=== PATIENT | female | born 1950 | race Caucasian/White ===

== ENCOUNTER 2017-10-20 03:16 | Observation (INO) ==
[2017-10-20] MEDS ORDERED: Aspirin 81 MG TAB.CHEW PO ONE (03:29)
[2017-10-20] MEDS ORDERED: *HR* Metoprolol 5 MG/5 ML VIAL IVP ONE (03:44)
--- NOTE | 2017-10-20 03:47 | Emergency Department Note ---
Disposition Clinical Impression: Atrial fibrillation with rapid ventricular response Chest pain Qualifiers: Chest pain type: unspecified Qualified Code(s): R07.9 - Chest pain, unspecified Disposition: Admitted As Inpatient Condition: Fair Referrals: Elissa Bray CNP [Primary Care Provider] - Kavita Oakes [Family Provider] - Forms: ED Satisfaction Letter Time of Disposition: 03:48 Chest Pain HPI - General Chief Complaint: ED Chest Pain Stated Complaint: chest pain Time Seen by Provider: 10/20/17 03:28 Source: patient Limitations: no limitations Vital Signs Reviewed: Yes Nursing Notes Reviewed: Yes - History of Present Illness HPI Narrative: Alert and oriented nontoxic-appearing 67-year-old female presents for evaluation of nonradiating substernal chest pain that began at approximately midnight. She describes this pain as a heaviness and rated a 6 out of 10 on a 10 point scale. She denies any known aggravating or alleviating factors. She does have a history of atrial fibrillation, for which she is on Xarelto for anticoagulation. She states that at the onset of pain, she was just sitting in a chair watching TV. She denies any vomiting but does complain of some nausea with symptom onset. She states that she did break out in a sweat as well. He denies any hemoptysis but does complain of a nonproductive cough. She states that this cough is worse than her regular "COPD cough". Pt complaint: chest pain Onset (ago): hour(s) (3.5) Duration: constant Onset: during rest Pain Location: substernal Severity: moderate Severity scale (1-10): 6 Quality: heaviness Pain Radiation: none Improves with: nothing Worsens with: nothing Associated symptoms: Reports: nausea, diaphoresis, cough. Denies: vomiting, dyspnea, palpitations, fever, leg swelling Treatments prior to arrival chest pain: none - Related Data Allergies Allergy/AdvReac Type Severity Reaction Status Date / Time Diclofenac Allergy See Verified 10/20/17 03:21 Comments morphine Allergy Palpitation Verified 10/20/17 03:21 s diltiazem [From Diltzac ER] AdvReac Gastrointestinal Verified 10/20/17 03:21 Upset linagliptin [From Tradjenta] AdvReac Gastrointestinal Verified 10/20/17 03:21 Upset macitentan [From Opsumit] AdvReac Confusion Verified 10/20/17 03:21 metformin AdvReac Gastrointestinal Verified 10/20/17 03:21 Upset NSAIDS (Non-Steroidal AdvReac Gastrointestinal Verified 10/20/17 03:21 Anti-Inflamma Upset pioglitazone [From Actos] AdvReac Gastrointestinal Verified 10/20/17 03:21 Upset pregabalin [From Lyrica] AdvReac Confusion Verified 10/20/17 03:21 All systems ED: reviewed and negative except as stated. Constitutional: Denies: fever, chills, weakness, weight change Eyes: Denies: eye pain, eye discharge, vision change ENT ED: Denies: ear pain, throat pain, dental pain, hearing loss, epistaxis, congestion, dysphagia Cardiovascular: Reports: as per HPI, chest pain. Denies: palpitations, dyspnea on exertion, edema, syncope Respiratory: Reports: as per HPI, cough. Denies: dyspnea, wheezes, hemoptysis, stridor, sputum production Gastrointestinal: Reports: as per HPI, nausea. Denies: abdominal pain, vomiting , diarrhea, constipation, hematemesis, melena, hematochezia Genitourinary: Denies: dysuria, frequency, hematuria, discharge Musculoskeletal: Denies: back pain, neck pain, arthralgia, myalgia Integumentary: Denies: rash, abrasion, lesions Neurological: Denies: headache, weakness, numbness, paresthesias, confusion, abnormal gait, vertigo Psychiatric: Denies: anxiety, depression, suicidal thoughts, homicidal thoughts , auditory hallucinations, visual hallucinations Endocrine: Denies: fatigue Hematological/Lymphatic: Denies: easy bleeding, easy bruising Allergic/Immunologic: Denies: facial swelling, urticaria Chest Pain PMH - Past Medical History Medical history: Reports: atrial fibrillation, COPD, diabetes, GERD, hyperlipidemia, hypertension, renal disease Psychiatric history: Reports: no psych history 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 Absent: nystagmus - ENT ENT exam: mucous membranes moist - Neck Neck exam: Present: full ROM, trachea midline. Absent: lymphadenopathy - Chest Chest inspection: Present: normal inspection, symmetric chest wall rise, tenderness (Mild tenderness with palpation around the sternal borders) - Respiratory Respiratory exam: Present: normal lung sounds bilaterally. Absent: respiratory distress, wheezes, stridor, accessory muscle use, prolonged expiratory phase - Cardiovascular Cardiovascular exam: Present: tachycardia, irregular rhythm, normal heart sounds - Abdominal Exam Abdominal exam: Present: soft, Non-Tender, normal bowel sounds - Extremities Exam Extremities exam: Present: normal inspection, full ROM. Absent: tenderness, pedal edema - Neurological Exam Neurological exam: Present: alert, oriented X3 - Psychiatric Psychiatric exam: Present: normal affect, normal mood - Skin Skin exam: Present: warm, dry, intact, normal color. Absent: rash Course Course Narrative: I spoke with Dr. Villagran of the Hospital services accepted the patient for admission to his care. I discussed this case with Dr. Willoughby. Dr. Willoughby has had a [id number] evaluation with the patient and agrees with this plan. - Reevaluation(s) Reevaluation #1: The patient's heart rate has improved to the 80s to 90s after the administration of IV Lopressor. She does state significant improvement and chest pain after rate control was achieved. Time: 04:48 Vital Signs Temperature 97.7 F 10/20/17 03:22 Pulse Rate 105 10/20/17 03:22 Respiratory Rate 18 10/20/17 03:22 Blood Pressure 155/97 10/20/17 03:22 O2 Sat by Pulse Oximetry 95 10/20/17 03:22 Temperature 97.7 F 10/20/17 03:22 Pulse Rate 105 10/20/17 03:22 Respiratory Rate 18 10/20/17 03:22 Blood Pressure 155/97 10/20/17 03:22 O2 Sat by Pulse Oximetry 95 10/20/17 03:22 Oxygen Delivery Oxygen Delivery Room Air Chest Pain - Medical Records Medical records reviewed: Yes I reviewed the patient's medical records. - Lab Data Lab results reviewed: Yes I reviewed the patient's lab results. Lab results narrative: Lab Results 10/20/17 10/20/17 10/20/17 Range/Units 03:29 03:29 03:39 WBC 3.7 L (4.3-11.1) K/mcL RBC 4.84 (3.82-4.97) M/mcL Hgb 14.1 (11.5-15.4) g/dL Hct 43.0 (35.3-44.9) % MCV 88.8 (83.0-100.0) fL MCH 29.1 (28.0-33.3) pg MCHC 32.8 (31.6-35.5) g/dL RDW 13.8 (11.5-14.5) % Plt Count 271 (140-400) K/mcL MPV 10.3 (9.4-12.4) fL Immature Gran % 1.9 (0-4) % Seg Neutrophils % 41.1 % Lymphocytes % 40.2 % Monocytes % 15.5 % Eosinophils % 0.5 % Basophils % 0.8 % Neutrophils # 1.5 L (1.6-8.9) K/mcL Lymphocytes # 1.5 (0.6-4.6) K/mcL Monocytes # 0.6 (0.0-1.3) K/mcL Eosinophils # 0.0 (0.0-0.6) K/mcL Basophils # 0.0 (0.0-0.2) K/mcL PT 11.8 (9.4-12.1) Seconds INR 1.1 APTT 32.0 (26.0-36.0) Seconds D-Dimer 1132 H (0-500) ng/mLFEU Sodium (136-145) mEq/L Potassium (3.5-5.1) mEq/L Chloride (98-107) mEq/L Carbon Dioxide (23-29) mEq/L BUN (8-23) mg/dL Creatinine (0.60-1.20) mg/dL Est GFR ( Amer) (> 60) Est GFR (Non-Af Amer) (> 60) BUN/Creatinine Ratio (6-26) Glucose (70-105) mg/dL Calculated Osmolality (280-300) Calcium (8.6-10.3) mg/dL Troponin I (< 0.04) ng/mL B-Natriuretic Peptide 72 (Less than 100) pg/mL 10/20/17 Range/Units 03:39 WBC (4.3-11.1) K/mcL RBC (3.82-4.97) M/mcL Hgb (11.5-15.4) g/dL Hct (35.3-44.9) % MCV (83.0-100.0) fL MCH (28.0-33.3) pg MCHC (31.6-35.5) g/dL RDW (11.5-14.5) % Plt Count (140-400) K/mcL MPV (9.4-12.4) fL Immature Gran % (0-4) % Seg Neutrophils % % Lymphocytes % % Monocytes % % Eosinophils % % Basophils % % Neutrophils # (1.6-8.9) K/mcL Lymphocytes # (0.6-4.6) K/mcL Monocytes # (0.0-1.3) K/mcL Eosinophils # (0.0-0.6) K/mcL Basophils # (0.0-0.2) K/mcL PT (9.4-12.1) Seconds INR APTT (26.0-36.0) Seconds D-Dimer (0-500) ng/mLFEU Sodium 131 L (136-145) mEq/L Potassium 3.9 (3.5-5.1) mEq/L Chloride 96 L (98-107) mEq/L Carbon Dioxide 26 (23-29) mEq/L BUN 15 (8-23) mg/dL Creatinine 0.83 (0.60-1.20) mg/dL Est GFR ( Amer) > 60 (> 60) Est GFR (Non-Af Amer) > 60 (> 60) BUN/Creatinine Ratio 18 (6-26) Glucose 331 H (70-105) mg/dL Calculated Osmolality 286 (280-300) Calcium 9.1 (8.6-10.3) mg/dL Troponin I < 0.03 (< 0.04) ng/mL B-Natriuretic Peptide (Less than 100) pg/mL Result diagrams: 10/20/17 03:39 10/20/17 03:39 Lab Results 10/20/17 10/20/17 10/20/17 Range/Units 03:29 03:29 03:39 WBC 3.7 L (4.3-11.1) K/mcL RBC 4.84 (3.82-4.97) M/mcL Hgb 14.1 (11.5-15.4) g/dL Hct 43.0 (35.3-44.9) % MCV 88.8 (83.0-100.0) fL MCH 29.1 (28.0-33.3) pg MCHC 32.8 (31.6-35.5) g/dL RDW 13.8 (11.5-14.5) % Plt Count 271 (140-400) K/mcL MPV 10.3 (9.4-12.4) fL Immature Gran % 1.9 (0-4) % Seg Neutrophils % 41.1 % Lymphocytes % 40.2 % Monocytes % 15.5 % Eosinophils % 0.5 % Basophils % 0.8 % Neutrophils # 1.5 L (1.6-8.9) K/mcL Lymphocytes # 1.5 (0.6-4.6) K/mcL Monocytes # 0.6 (0.0-1.3) K/mcL Eosinophils # 0.0 (0.0-0.6) K/mcL Basophils # 0.0 (0.0-0.2) K/mcL PT 11.8 (9.4-12.1) Seconds INR 1.1 APTT 32.0 (26.0-36.0) Seconds D-Dimer 1132 H (0-500) ng/mLFEU Sodium (136-145) mEq/L Potassium (3.5-5.1) mEq/L Chloride (98-107) mEq/L Carbon Dioxide (23-29) mEq/L BUN (8-23) mg/dL Creatinine (0.60-1.20) mg/dL Est GFR ( Amer) (> 60) Est GFR (Non-Af Amer) (> 60) BUN/Creatinine Ratio (6-26) Glucose (70-105) mg/dL Calculated Osmolality (280-300) Calcium (8.6-10.3) mg/dL Troponin I (< 0.04) ng/mL B-Natriuretic Peptide 72 (Less than 100) pg/mL 10/20/17 Range/Units 03:39 WBC (4.3-11.1) K/mcL RBC (3.82-4.97) M/mcL Hgb (11.5-15.4) g/dL Hct (35.3-44.9) % MCV (83.0-100.0) fL MCH (28.0-33.3) pg MCHC (31.6-35.5) g/dL RDW (11.5-14.5) % Plt Count (140-400) K/mcL MPV (9.4-12.4) fL Immature Gran % (0-4) % Seg Neutrophils % % Lymphocytes % % Monocytes % % Eosinophils % % Basophils % % Neutrophils # (1.6-8.9) K/mcL Lymphocytes # (0.6-4.6) K/mcL Monocytes # (0.0-1.3) K/mcL Eosinophils # (0.0-0.6) K/mcL Basophils # (0.0-0.2) K/mcL PT (9.4-12.1) Seconds INR APTT (26.0-36.0) Seconds D-Dimer (0-500) ng/mLFEU Sodium 131 L (136-145) mEq/L Potassium 3.9 (3.5-5.1) mEq/L Chloride 96 L (98-107) mEq/L Carbon Dioxide 26 (23-29) mEq/L BUN 15 (8-23) mg/dL Creatinine 0.83 (0.60-1.20) mg/dL Est GFR ( Amer) > 60 (> 60) Est GFR (Non-Af Amer) > 60 (> 60) BUN/Creatinine Ratio 18 (6-26) Glucose 331 H (70-105) mg/dL Calculated Osmolality 286 (280-300) Calcium 9.1 (8.6-10.3) mg/dL Troponin I < 0.03 (< 0.04) ng/mL B-Natriuretic Peptide (Less than 100) pg/mL - Radiology Data Radiology results reviewed: Yes I reviewed the patient's radiology results. Chest X-Ray 10/20/17 03:29 IMPRESSION: Diffuse airway inflammation may be seen with asthma, bronchitis, smoking and aspiration. Questionable patchy airspace disease at the left lung base, although this may reflect although bronchovascular confluence accentuated by patient rotation. CT could clarify. D/ / Jerel Corado / Jerel Corado Interpreting Provider: Jerel Corado - EKG Data EKG attestation: Yes I reviewed and interpreted this EKG. EKG results narrative: EKG reviewed by Dr. Willoughby as well. EKG shows atrial fibrillation with rapid ventricular response at a rate of 115 bpm. QRS duration 89, QT/QTc interval 311 /379. No ectopy noted. No ST elevation. Old EKG for comparison. Mild ST depression noted in leads V3, V4, V5, and V6. Heart Score - Score History: Moderately Suspicious EKG: Non Specific repolarisation Disturbance Age: Greater than 65 Risk Factors: Equal/Greater than 3 risk factor or history of atherosclerotic disease Troponin: Less than normal limit HEART Score Total: 6
[2017-10-20] MEDS: 0.9 % Sodium Chloride 1,000 ML IVC ONE ×2 (04:01→07:28)
[2017-10-20 04:28] LABS: Basophils % 0.8 %; Eosinophils % 0.5 %; Hemoglobin 14.1 g/dL (11.5-15.4); Immature Granulocytes % 1.9 % (0-4); Lymphocytes # 1.5 K/mcL (0.6-4.6); Lymphocytes % 40.2 %; Mean Corpuscular HGB Conc 32.8 g/dL (31.6-35.5); Mean Corpuscular Hemoglobin 29.1 pg (28.0-33.3); Mean Corpuscular Volume 88.8 fL (83.0-100.0); Mean Platelet Volume 10.3 fL (9.4-12.4); Monocytes # 0.6 K/mcL (0.0-1.3); Monocytes % 15.5 %; Neutrophils # 1.5 K/mcL (1.6-8.9); Platelet Count 271 K/mcL (140-400); Red Blood Count 4.84 M/mcL (3.82-4.97); Red Cell Distribution Width 13.8 % (11.5-14.5); Segmented Neutrophils % 41.1 %
[2017-10-20 04:34] LABS: INR 1.1; Prothrombin Time 11.8 Seconds (9.4-12.1)
[2017-10-20] MEDS ORDERED: Isovue-370 500 ML INFUS..BTL IV ONE (04:47)
[2017-10-20 04:57] LABS: BUN/Creatinine Ratio 18 (6-26); Blood Urea Nitrogen 15 mg/dL (8-23); Calcium 9.1 mg/dL (8.6-10.3); Carbon Dioxide 26 mEq/L (23-29); Chloride 96 mEq/L (98-107); Glucose 331 mg/dL (70-105); Osmolality,Calculated 286 (280-300); Potassium 3.9 mEq/L (3.5-5.1); Sodium 131 mEq/L (136-145); Troponin I < 0.03 ng/mL (< 0.04); eGFR For African Americans > 60 (> 60); eGFR For Non-African Americans > 60 (> 60)
[2017-10-20] MEDS ORDERED: *HR* Rivaroxaban 10 MG TABLET PO STA (05:26)
[2017-10-20] MEDS ORDERED: Azithromycin 500 MG in D5% in Water 250 ML IVPB ONE (06:03)
[2017-10-20] MEDS ORDERED: Naloxone 0.4 MG/ML INJ IVP PRN (06:08)
[2017-10-20] MEDS ORDERED: Acetaminophen 325 MG TABLET PO PRN (06:08)
[2017-10-20] MEDS ORDERED: Dextrose Gel 15 GM/37.5 ML TUBE PO PRN ×2 (06:12)
[2017-10-20] MEDS ORDERED: D5% in Water 1,000 ML IVC PRN (06:12)
[2017-10-20] MEDS ORDERED: *HR* Metoprolol 5 MG/5 ML VIAL IVP PRN (06:13)
[2017-10-20] MEDS ORDERED: Ipratropium/Albuterol Neb 3 ML IH PRN ×2 (06:17→20:00)
[2017-10-20] MEDS: cefTRIAXone 1,000 MG in Water for inj. (sterile) 20 ML 10 ML IVPB ONE ×2 (06:21→07:28)
--- NOTE | 2017-10-20 06:21 | Emergency Department Note ---
Disposition Clinical Impression: Atrial fibrillation with rapid ventricular response Chest pain Qualifiers: Chest pain type: unspecified Qualified Code(s): R07.9 - Chest pain, unspecified Disposition: Admitted As Inpatient Condition: Fair Referrals: Elissa Bray CNP [Primary Care Provider] - Kavita Oakes [Family Provider] - Forms: ED Satisfaction Letter General Adult HPI - General Chief complaint: ED Chest Pain Stated complaint: chest pain Time Seen by Provider: 10/20/17 03:28 Source: patient Limitations: no limitations Nursing Notes Reviewed: Yes Vital Signs Reviewed: Yes - History of Present Illness Pain Scale: 5 - Related Data Allergies Allergy/AdvReac Type Severity Reaction Status Date / Time Diclofenac Allergy See Verified 10/20/17 03:21 Comments morphine Allergy Palpitation Verified 10/20/17 03:21 s diltiazem [From Diltzac ER] AdvReac Gastrointestinal Verified 10/20/17 03:21 Upset linagliptin [From Tradjenta] AdvReac Gastrointestinal Verified 10/20/17 03:21 Upset macitentan [From Opsumit] AdvReac Confusion Verified 10/20/17 03:21 metformin AdvReac Gastrointestinal Verified 10/20/17 03:21 Upset NSAIDS (Non-Steroidal AdvReac Gastrointestinal Verified 10/20/17 03:21 Anti-Inflamma Upset pioglitazone [From Actos] AdvReac Gastrointestinal Verified 10/20/17 03:21 Upset pregabalin [From Lyrica] AdvReac Confusion Verified 10/20/17 03:21 Constitutional: Denies: fever, chills, weakness, weight change Eyes: Denies: eye pain, eye discharge, vision change ENT ED: Denies: ear pain, throat pain, dental pain, hearing loss, epistaxis, congestion, dysphagia Cardiovascular: Reports: as per HPI, chest pain. Denies: palpitations, dyspnea on exertion, edema, syncope Respiratory: Reports: as per HPI, cough. Denies: dyspnea, wheezes, hemoptysis, stridor, sputum production Gastrointestinal: Reports: as per HPI, nausea. Denies: abdominal pain, vomiting , diarrhea, constipation, hematemesis, melena, hematochezia Genitourinary: Denies: dysuria, frequency, hematuria, discharge Musculoskeletal: Denies: back pain, neck pain, arthralgia, myalgia Integumentary: Denies: rash, abrasion, lesions Neurological: Denies: headache, weakness, numbness, paresthesias, confusion, abnormal gait, vertigo Psychiatric: Denies: anxiety, depression, suicidal thoughts, homicidal thoughts , auditory hallucinations, visual hallucinations Endocrine: Denies: fatigue Hematological/Lymphatic: Denies: easy bleeding, easy bruising Allergic/Immunologic: Denies: facial swelling, urticaria Past Medical History - Past Medical History Medical history: Reports: atrial fibrillation, COPD, diabetes, GERD, hyperlipidemia, hypertension, renal disease Psychiatric history: Reports: no psych history 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 - Social History Smoking Status: Never smoker Smokeless Tobacco Status: No Alcohol use: Reports: none Drug use: Reports: none Physical Exam - General Limitations: no limitations General appearance: alert, in no apparent distress Course Vital Signs Temperature 97.7 F 10/20/17 03:22 Pulse Rate 105 10/20/17 03:22 Respiratory Rate 18 10/20/17 03:22 Blood Pressure 155/97 10/20/17 03:22 O2 Sat by Pulse Oximetry 95 10/20/17 03:22 Temperature 98.8 F 10/20/17 06:08 Pulse Rate 107 10/20/17 06:08 Respiratory Rate 18 10/20/17 06:08 Blood Pressure 149/91 10/20/17 06:08 O2 Sat by Pulse Oximetry 93 10/20/17 06:08 Oxygen Delivery Oxygen Delivery Room Air Medical Decision Making - Lab Data Result diagrams: 10/20/17 03:39 10/20/17 03:39 Lab Results 10/20/17 10/20/17 10/20/17 Range/Units 03:29 03:29 03:39 WBC 3.7 L (4.3-11.1) K/mcL RBC 4.84 (3.82-4.97) M/mcL Hgb 14.1 (11.5-15.4) g/dL Hct 43.0 (35.3-44.9) % MCV 88.8 (83.0-100.0) fL MCH 29.1 (28.0-33.3) pg MCHC 32.8 (31.6-35.5) g/dL RDW 13.8 (11.5-14.5) % Plt Count 271 (140-400) K/mcL MPV 10.3 (9.4-12.4) fL Immature Gran % 1.9 (0-4) % Seg Neutrophils % 41.1 % Lymphocytes % 40.2 % Monocytes % 15.5 % Eosinophils % 0.5 % Basophils % 0.8 % Neutrophils # 1.5 L (1.6-8.9) K/mcL Lymphocytes # 1.5 (0.6-4.6) K/mcL Monocytes # 0.6 (0.0-1.3) K/mcL Eosinophils # 0.0 (0.0-0.6) K/mcL Basophils # 0.0 (0.0-0.2) K/mcL PT 11.8 (9.4-12.1) Seconds INR 1.1 APTT 32.0 (26.0-36.0) Seconds D-Dimer 1132 H (0-500) ng/mLFEU Sodium (136-145) mEq/L Potassium (3.5-5.1) mEq/L Chloride (98-107) mEq/L Carbon Dioxide (23-29) mEq/L BUN (8-23) mg/dL Creatinine (0.60-1.20) mg/dL Est GFR ( Amer) (> 60) Est GFR (Non-Af Amer) (> 60) BUN/Creatinine Ratio (6-26) Glucose (70-105) mg/dL Calculated Osmolality (280-300) Calcium (8.6-10.3) mg/dL Troponin I (< 0.04) ng/mL B-Natriuretic Peptide 72 (Less than 100) pg/mL 10/20/17 Range/Units 03:39 WBC (4.3-11.1) K/mcL RBC (3.82-4.97) M/mcL Hgb (11.5-15.4) g/dL Hct (35.3-44.9) % MCV (83.0-100.0) fL MCH (28.0-33.3) pg MCHC (31.6-35.5) g/dL RDW (11.5-14.5) % Plt Count (140-400) K/mcL MPV (9.4-12.4) fL Immature Gran % (0-4) % Seg Neutrophils % % Lymphocytes % % Monocytes % % Eosinophils % % Basophils % % Neutrophils # (1.6-8.9) K/mcL Lymphocytes # (0.6-4.6) K/mcL Monocytes # (0.0-1.3) K/mcL Eosinophils # (0.0-0.6) K/mcL Basophils # (0.0-0.2) K/mcL PT (9.4-12.1) Seconds INR APTT (26.0-36.0) Seconds D-Dimer (0-500) ng/mLFEU Sodium 131 L (136-145) mEq/L Potassium 3.9 (3.5-5.1) mEq/L Chloride 96 L (98-107) mEq/L Carbon Dioxide 26 (23-29) mEq/L BUN 15 (8-23) mg/dL Creatinine 0.83 (0.60-1.20) mg/dL Est GFR ( Amer) > 60 (> 60) Est GFR (Non-Af Amer) > 60 (> 60) BUN/Creatinine Ratio 18 (6-26) Glucose 331 H (70-105) mg/dL Calculated Osmolality 286 (280-300) Calcium 9.1 (8.6-10.3) mg/dL Troponin I < 0.03 (< 0.04) ng/mL B-Natriuretic Peptide (Less than 100) pg/mL Critical Care Time Critical Care Time: Yes Total Critical Care Time: 30 Attestation: Critical care performed: Time is exclusive of separately billable procedures. Time includes: direct patient care, patient reassessment, coordination of patient care, interpretation of data (laboratory data, radiology data, and respiratory data), review of patient's medical records, medical consultation and documentation of patient care. Procedures included in critical care time: Procedures excluded from critical care time: Attestation Statement - Attestation Attestation: I, Palmer Willoughby MD, personally evaluated this patient and discussed their management with the midlevel provicer, PAC/SLEEPER CUTTER. I reviewed the midlevel provider 's note and agree with the documented findings, medical decision making, and plan of care. 67-year-old female presents to the emergency department with a complaint of substernal chest pain which started about 2-3 hours prior to arrival. Patient was here at the hospital with her who is admitted. She also complains of palpitations. She has a history of atrial fibrillation and is on Xarelto. No radiation of the chest pain. No shortness of breath. No nausea or vomiting. No diaphoresis. On arrival here the emergency department the patient is in atrial fibrillation with RVR with a heart rate around 110-120. She received Lopressor IV with improvement in her heart rate and also improvement in her chest discomfort. Patient later advised that she had missed her Xarelto this evening because she was here at the hospital with her . She also missed her evening dose of sotalol. On examination patient is a well-developed obese elderly female in no acute distress. She is alert and oriented 3. There is no cyanosis or diaphoresis. Chest is nontender to palpation. Breath sounds are equal bilaterally. Heart irregularly irregular with a mild tachycardia. Abdomen soft and nontender with normal bowel sounds. Labs reviewed. Troponin negative. Chest x-ray negative. EKG shows atrial fibrillation with RVR with a heart rate of 115. Some mild anterior ST depression which is probably rate related. The hospitalist, Dr. Villagran, was consulted and accepted admission of the patient.
--- NOTE | 2017-10-20 06:25 | Internal Med History&Physical ---
Date of Encounter: 10/20/17 Time of Encounter: 05:50 Internal Medicine - H&P: HPI Chief complaint: Chest pain Admitted From: Home Plans for Post Hospital Care: Home History of present illness: Ms. Trimble is a 67 year old female present to ER for chest pain since midnight. Her past medical history is significant for diabetes, COPD, A. fib on sotalol and xarelto, hypertension, hyperlipidemia, GERD. Patient said the pain started from midnight, located on mid chest, sharp/heavy, radiated to bilateral shoulders and neck, constant, worsening on deep breathing. Patient has shortness of breath. Patient denies nausea. Patient has diaphoresis. Patient has a recent nonproductive cough for about 2 weeks, no fever. Patient denies recent travel or immobilization or surgery. Patient complaining of bilateral leg swelling. Patient also complaining of abdominal pain on the right side. In the emergency room, EKG shows A. fib with mild rapid ventricular response, no significant ST-T changes. D-dimer positive, CTA is pending. Patient was given 1 dose of xarelto by ER physician and admitted for further management. Past Med Surg Social Fam HX - Past Medical History Medical history: atrial fibrillation, COPD, diabetes, GERD, hyperlipidemia, hypertension, renal disease Psychiatric history: no psych history - Social History Smoking Status: Never smoker Smokeless Tobacco Status: No Alcohol use: none Drug use: none - Family History Mother History Unknown: Yes Internal Medicine - H&P: Meds 3 Allergy/AdvReac Type Severity Reaction Status Date / Time Diclofenac Allergy See Verified 10/20/17 03:21 Comments morphine Allergy Palpitation Verified 10/20/17 03:21 s diltiazem [From Diltzac ER] AdvReac Gastrointestinal Verified 10/20/17 03:21 Upset linagliptin [From Tradjenta] AdvReac Gastrointestinal Verified 10/20/17 03:21 Upset macitentan [From Opsumit] AdvReac Confusion Verified 10/20/17 03:21 metformin AdvReac Gastrointestinal Verified 10/20/17 03:21 Upset NSAIDS (Non-Steroidal AdvReac Gastrointestinal Verified 10/20/17 03:21 Anti-Inflamma Upset pioglitazone [From Actos] AdvReac Gastrointestinal Verified 10/20/17 03:21 Upset pregabalin [From Lyrica] AdvReac Confusion Verified 10/20/17 03:21 All Systems PM: A 10-system review of systems was performed and is negative for pertinent findings except as documented above in the HPI. - Constitutional Vitals: Temp Pulse Resp BP Pulse Ox 98.8 F 107 18 149/91 93 10/20/17 06:08 10/20/17 06:08 10/20/17 06:08 10/20/17 06:08 10/20/17 06:08 General appearance: Present: A&O X 3, no acute distress, answers questions appropriately - Head Head exam: Present: atraumatic, normocephalic - Eye Eye exam: Present: PERRL, conjuntiva pink, sclera anicteric Pupils: Present: PERRL - Neck Neck exam general surgery: Present: supple, trachea midline. Absent: lymphadenopathy - Respiratory Respiratory exam: Present: chest wall tenderness (on mid chest), CTAB. Absent: accessory muscle use, rales, rhonchi, wheezes - Cardiovascular Cardiovascular exam: Present: RRR, +S1, +S2. Absent: diastolic murmur, gallop, rubs, systolic murmur - GI/Abdominal GI/Abdominal exam: Present: normal bowel sounds, soft, tenderness (Mild tenderness on right-sided abdomen, no rebound or guarding), no peritoneal signs. Absent: distended - Extremities Exam Extremities exam: Present: calf tenderness (Mild calf tenderness bilaterally), warm, radial pulses palpable and symmetrical. Absent: cyanotic, pedal edema - Neurological Exam Neurological exam: Present: CN II-XII intact, oriented X3, no focal deficits. Absent: pronater drift, facial droop, speech deficit - Skin Skin exam: Present: dry, intact Internal Med - H&P Results - Labs CBC & Chem 7: 10/20/17 03:39 10/20/17 03:39 Labs: Short CBC 10/20/17 Range/Units 03:39 WBC 3.7 L (4.3-11.1) K/mcL Hgb 14.1 (11.5-15.4) g/dL Hct 43.0 (35.3-44.9) % Plt Count 271 (140-400) K/mcL Neutrophils # 1.5 L (1.6-8.9) K/mcL BMP 10/20/17 03:39 Sodium 131 L Potassium 3.9 Chloride 96 L Carbon Dioxide 26 BUN 15 Creatinine 0.83 Glucose 331 H Calcium 9.1 Cardiac Enzymes 10/20/17 Range/Units 03:39 Troponin I < 0.03 (< 0.04) ng/mL - EKG Data -: EKG Interpreted by Myself (Jazmin alberto, heart rate 115) EKG shows normal: ST-T waves (No significant ST-T changes) Rate: tachycardia - Impressions ITS Impressions Chest X-Ray 10/20/17 03:29 IMPRESSION: Diffuse airway inflammation may be seen with asthma, bronchitis, smoking and aspiration. Questionable patchy airspace disease at the left lung base, although this may reflect although bronchovascular confluence accentuated by patient rotation. CT could clarify. D/ / Jerel Corado / Jerel Corado Interpreting Provider: Jerel Corado Chest CTA 10/20/17 04:47 IMPRESSION: No pulmonary emboli. Left lower lobe bronchial wall thickening with small amount of peribronchiolar airspace opacity, early bronchopneumonia not excluded. D/ / Emory Pelletier MD / Emory Pelletier MD Interpreting Provider: Emory Pelletier MD - Assessment and plan (1) COPD (chronic obstructive pulmonary disease) Current Visit: Yes Status: Acute Assessment and plan: No wheezing. No signs of COPD exacerbation. Place patient on DuoNeb when necessary. Qualifiers: COPD type: emphysema Emphysema type: unspecified Qualified Code(s): J43.9 - Emphysema, unspecified (2) Pneumonia Current Visit: Yes Status: Acute Assessment and plan: Chest x-ray shows questionable infiltrate. Patient has nonproductive cough for 2 weeks, consider acute bronchitis versus community acquired pneumonia. - Azithromycin and Rocephin started from ER, will continue, unless CTA ruled out pneumonia - Symptomatic treatment for cough - Oxygen supportive treatment Qualifiers: Pneumonia type: due to Pneumococcus Laterality: left Lung location: lower lobe of lung Qualified Code(s): J13 - Pneumonia due to Streptococcus pneumoniae (3) Elevated d-dimer Current Visit: Yes Status: Acute Assessment and plan: Patient has chest pain. Mild tachycardia. Elevated d-dimer. Need to rule out PE. - Patient was given 1 dose of xarelto 20mg once in ER - Follow up CTA result. - Lower extremity venous Doppler bilaterally (4) Diabetes mellitus Current Visit: Yes Status: Acute Assessment and plan: Patient uses novolog 30 unit tid with meal. [address] patient on medium dose sliding scale before meals at bedtime Qualifiers: Diabetes mellitus type: type 2 Diabetes mellitus jail insulin use: with jail use Diabetes mellitus complication status: without complication Qualified Code(s): E11.9 - Type 2 diabetes mellitus without complications; Z79.4 - half-way (current) use of insulin; Z79.4 - joint terminal attack controller ( current) use of insulin; Z79.4 - joint terminal attack controller (current) use of insulin; Z79.4 - half-way (current) use of insulin (5) Hypertension Current Visit: Yes Status: Acute Assessment and plan: Place patient on hydralazine IV when necessary. Resume home medication after verification Qualifiers: Hypertension type: essential hypertension Qualified Code(s): I10 - Essential (primary) hypertension (6) DVT prophylaxis Current Visit: Yes Status: Acute Assessment and plan: Patient is on xarelto. (7) Chest pain Current Visit: Yes Status: Acute Assessment and plan: Etiology is undetermined. Chest the pain is inducible by palpitation and the patient has recent URI symptoms. Consider skeletal muscular pain, however need to rule out ACS and PE - Continuous cardiac monitoring - Track 3 sets of troponin - Echocardiogram - CTA is pending Qualifiers: Chest pain type: precordial pain Qualified Code(s): R07.2 - Precordial pain (8) Atrial fibrillation with rapid ventricular response Current Visit: Yes Status: Acute Assessment and plan: Patient is allergic to Cardizem. Place patient on home medication sotalol and IV metoprolol when necessary. Continue xarelto for anticoagulation (9) Abdominal pain Current Visit: Yes Status: Acute Assessment and plan: Patient has RUQ abdominal pain, abdominal exam is benign. Morphy's sign negative. Will further order abdominal and pelvis CT. Qualifiers: Abdominal location: right upper quadrant Qualified Code(s): R10.11 - Right upper quadrant pain - Time Spent With Patient Total time spent is greater than 50% in coordination of care (as documented) at patient's floor/unit and/or counseling patient: 40 minutes Greater than 35 minutes
[2017-10-20] MEDS: Insulin LISPRO 300 UNITS/3 ML VIAL SQ SCH ×3 (08:54→16:03)
[2017-10-20] MEDS: cefTRIAXone 1,000 MG in Water for inj. (sterile) 20 ML 10 ML IVP SCH (08:56)
[2017-10-20] MEDS: Azithromycin 500 MG in D5% in Water 250 ML IVPB SCH (08:57)
[2017-10-20] MEDS ORDERED: *HR* HYDROcodone/Acet 7.5/325 mg TABLET PO PRN (09:39)
--- NOTE | 2017-10-20 16:57 | Event Note ---
Date of Encounter: 10/20/17 Time of Encounter: 16:47 Seen and examined at bedside. Sitting up on edge of bed, having some shortness of breath otherwise feels better. No further chest pain. She is agreeable for inpatient stress testing. (1) COPD (chronic obstructive pulmonary disease) No wheezing. No signs of COPD exacerbation. Place patient on DuoNeb when necessary. (2) Pneumonia Chest x-ray shows questionable infiltrate. Patient has nonproductive cough for 2 weeks, consider acute bronchitis versus community acquired pneumonia. Chest CTA concerning for LLL pneumonia - Azithromycin and Rocephin started from ER - Symptomatic treatment for cough - Oxygen supportive treatment (3) Elevated d-dimer Patient has chest pain. Mild tachycardia. Elevated d-dimer. Chest CTA negative for pulmonary embolism (4) Diabetes mellitus Patient uses novolog [address]. [address] patient on medium dose sliding scale before meals at bedtime (5) Hypertension per hx. resume home BB; holding HCTZ with hyponatremia. Monitor BP and titrate PRN (6) DVT prophylaxis Patient is on xarelto. (7) Chest pain Etiology is undetermined. Chest the pain is inducible by palpitation and the patient has recent URI symptoms. Chest CTA as noted above.Serial troponin negative. EKG without acute ST changes. Patient is agreeable for stress test. NPO at midnight. Cont home Xarelto, BB (8) Atrial fibrillation with rapid ventricular response per hx. COnt home sotalol. Continue xarelto for anticoagulation (9) Abdominal pain Patient has RUQ abdominal pain, abdominal exam is benign. ABD CT nonacute. Abdominal pain now resolved.
[2017-10-20] MEDS ORDERED: Losartan/HCTZ 50-12.5 TABLET PO SCH (17:00)
[2017-10-20] MEDS: *HR* HYDROcodone/Acet 7.5/325 mg TABLET PO PRN (17:26)
[2017-10-20] MEDS ORDERED: Perflutren Lipid Microsphere 1.3 ML in 0.9 % Sodium Chloride 8.7 ML IVP ONE (21:59)
[2017-10-20] MEDS: rOPINIRole 1 MG TABLET PO SCH (22:11)
[2017-10-20] MEDS: Gabapentin 400 MG CAPSULE PO SCH (22:11)
[2017-10-21] MEDS: Insulin LISPRO 300 UNITS/3 ML VIAL SQ SCH ×5 (00:02→21:36)
[2017-10-21] MEDS: *HR* HYDROcodone/Acet 7.5/325 mg TABLET PO PRN ×2 (00:03→12:03)
[2017-10-21] MEDS ORDERED: Regadenoson 0.4 MG/5 ML SYRINGE IVP ONE (05:48)
[2017-10-21] MEDS: Azithromycin 500 MG in D5% in Water 250 ML IVPB SCH (06:26)
[2017-10-21 07:20] LABS: Hematocrit 38.5 % (35.3-44.9); Lymphocytes # 2.1 K/mcL (0.6-4.6); Mean Corpuscular HGB Conc 32.5 g/dL (31.6-35.5); Mean Corpuscular Hemoglobin 29.5 pg (28.0-33.3); Mean Corpuscular Volume 90.8 fL (83.0-100.0); Mean Platelet Volume 10.6 fL (9.4-12.4); Monocytes # 0.5 K/mcL (0.0-1.3); Platelet Count 243 K/mcL (140-400); Red Blood Count 4.24 M/mcL (3.82-4.97); Red Cell Distribution Width 14.3 % (11.5-14.5)
[2017-10-21 07:39] LABS: Calcium 9.1 mg/dL (8.6-10.3); Magnesium 1.6 mg/dL (1.6-2.6); Potassium 3.8 mEq/L (3.5-5.1)
[2017-10-21] MEDS ORDERED: 0.9 % Sodium Chloride 1,000 ML IVC SCH ×2 (09:00→19:45)
[2017-10-21] MEDS ORDERED: Furosemide 40 MG TABLET PO SCH (09:00)
[2017-10-21] MEDS ORDERED: *HR* Rivaroxaban 10 MG TABLET PO SCH (09:00)
[2017-10-21] MEDS: Gabapentin 400 MG CAPSULE PO SCH ×3 (10:17→21:12)
[2017-10-21 11:00] LABS: Hemoglobin 12.5 g/dL (11.5-15.4)
[2017-10-21 11:32] LABS: Neutrophils # 1.1 K/mcL (1.6-8.9); Platelet Estimate Normal (Normal); Reactive Lymphocytes Present (Not Present)
[2017-10-21] MEDS ORDERED: Promethazine 12.5 MG in 0.9 % Sodium Chloride 50 ML IVPB PRN (16:34)
--- NOTE | 2017-10-21 19:30 | Internal Med Progress Note ---
Date of Encounter: 10/21/17 Time of Encounter: 19:27 - Assessment and plan (1) Chest pain Current Visit: Yes Status: Acute Assessment and plan: presented with left shoulder pain that radiated to chest. Chest pain was inducible by palpitation and the patient has recent URI symptoms. Chest CTA as noted below. Serial troponin negative. EKG without acute ST changes. TTE with EF 60%, mild diastolic dysfunction, no wall motion abnormalities. NPO at midnight. Stress test in am. Cont home Reynaldo, BB Qualifiers: Chest pain type: precordial pain Qualified Code(s): R07.2 - Precordial pain (2) Pneumonia Current Visit: Yes Status: Acute Assessment and plan: symptomatic with nonproductive cough for 2 weeks. CXR with questionable infiltrate; consider acute bronchitis versus community acquired pneumonia. Qualifiers: Pneumonia type: due to Pneumococcus Laterality: left Lung location: lower lobe of lung Qualified Code(s): J13 - Pneumonia due to Streptococcus pneumoniae (3) Atrial fibrillation with rapid ventricular response Current Visit: Yes Status: Acute Assessment and plan: per hx. With mild tachycardia on arrival. Now rate controlled. Cont home sotalol , xarelto (4) Hypertension Current Visit: Yes Status: Acute Assessment and plan: per hx. BP soft/borderline with resuming home medication. Stop aldactone and decrease home ARB, lasix. Monitor BP and titrate PRN Qualifiers: Hypertension type: essential hypertension Qualified Code(s): I10 - Essential (primary) hypertension (5) MAN (acute kidney injury) Current Visit: Yes Status: Acute Assessment and plan: Cr 1.4; baseline normal. Home medications resumed yesterday which include ARB, lasix and aldactone. Suspect that may the cause in Cr increase. BP soft/border as noted above. Stop aldactone, decrease lasi and ARB by half. Gentle IV fluids. Monitor repeat renal function (6) Diabetes mellitus Current Visit: Yes Status: Acute Assessment and plan: per hx. On U-500 insulin at home. Blood sugars in the 300s with medium dose SSI. Discussed with Shy (pharmacist) and will resume home U-500 at 1/2 her home dose. Monitor blood sugar and titrate PRN. Hgb A1c pending Qualifiers: Diabetes mellitus type: type 2 Diabetes mellitus prison insulin use: with prison use Diabetes mellitus complication status: without complication Qualified Code(s): E11.9 - Type 2 diabetes mellitus without complications; Z79.4 - correction (current) use of insulin; Z79.4 - correction ( current) use of insulin; Z79.4 - long term care phlebotomist (current) use of insulin; Z79.4 - long term care phlebotomist (current) use of insulin (7) COPD (chronic obstructive pulmonary disease) Current Visit: Yes Status: Acute Assessment and plan: per hx. No signs of exacerbation. PRN DuoNebs Qualifiers: COPD type: emphysema Emphysema type: unspecified Qualified Code(s): J43.9 - Emphysema, unspecified (8) Elevated d-dimer Current Visit: Yes Status: Acute Assessment and plan: presented with chest pain. Mild tachycardia. Elevated d-dimer. Chest CTA negative for pulmonary embolism. BLEVD negative for DVT (9) Abdominal pain Current Visit: Yes Status: Acute Assessment and plan: Patient has RUQ abdominal pain, abdominal exam is benign. ABD CT nonacute. Abdominal pain now resolved. Qualifiers: Abdominal location: right upper quadrant Qualified Code(s): R10.11 - Right upper quadrant pain (10) DVT prophylaxis Current Visit: Yes Status: Acute Assessment and plan: xarelto. - Time Spent With Patient Total time spent is greater than 50% in coordination of care (as documented) at patient's floor/unit and/or counseling patient: - Subjective Interval history: Seen and examined at bedside, says she feels better today. She feels a little SOB but overall improved. No CP, no ABD pain. - Constitutional Vitals: Temp Pulse Resp BP Pulse Ox 97.5 F L 50 16 104/66 93 10/21/17 18:45 10/21/17 18:45 10/21/17 18:45 10/21/17 18:45 10/21/17 18:45 General appearance: Present: A&O X 3, morbidly obese, no acute distress, answers questions appropriately - Head Head exam: Present: atraumatic, normocephalic - Eye Eye exam: Present: PERRL, conjuntiva pink, sclera anicteric Pupils: Present: PERRL - Neck Neck exam general surgery: Present: supple, trachea midline. Absent: lymphadenopathy - Respiratory Respiratory exam: Present: CTAB. Absent: accessory muscle use, rales, rhonchi, wheezes - Cardiovascular Cardiovascular exam: Present: RRR, +S1, +S2. Absent: diastolic murmur, gallop, rubs, systolic murmur - GI/Abdominal GI/Abdominal exam: Present: normal bowel sounds, soft, no peritoneal signs. Absent: distended, tenderness - Extremities Exam Extremities exam: Present: warm, radial pulses palpable and symmetrical. Absent : calf tenderness, cyanotic, pedal edema - Neurological Exam Neurological exam: Present: CN II-XII intact, oriented X3, no focal deficits. Absent: pronater drift, facial droop, speech deficit - Skin Skin exam: Present: dry, intact Internal Medicine: Result - Labs CBC & Chem 7: 10/21/17 06:12 10/21/17 06:12 Labs: Short CBC 10/21/17 Range/Units 06:12 WBC 3.8 L (4.3-11.1) K/mcL Hgb 12.5 D (11.5-15.4) g/dL Hct 38.5 (35.3-44.9) % Plt Count 243 (140-400) K/mcL Neutrophils # 1.1 L (1.6-8.9) K/mcL BMP 10/21/17 06:12 Sodium 136 Potassium 3.8 Chloride 100 Carbon Dioxide 29 BUN 25 H Creatinine 1.43 H Glucose 225 H Calcium 9.1 - ABG Interpretation ABG results: PT/INR, D-dimer PT 11.8 Seconds (9.4-12.1) 10/20/17 03:29 D-Dimer 1132 ng/mLFEU (0-500) H 10/20/17 03:29 Consult Discharge Plan - Plan Referrals: Elissa Bray CNP [Primary Care Provider] - 10/26/17 11:15 am
[2017-10-21] MEDS ORDERED: *HR* Insulin Regular U-500 500 UNIT/ML SQ SCH (21:00)
[2017-10-21] MEDS: rOPINIRole 1 MG TABLET PO SCH (21:13)
[2017-10-21 22:37] LABS: Adenovirus Not Detected (Not Detect); Coronavirus 229E Not Detected (Not Detect); Coronavirus HKU1 Not Detected (Not Detect); Coronavirus NL63 Not Detected (Not Detect); Coronavirus OC43 Not Detected (Not Detect); Human Metapneumovirus Not Detected (Not Detect); Human Rhinovirus/Enterovirus Not Detected (Not Detect); Influenza A Subtype 2009 H1 Not Detected (Not Detect); Influenza A Untypeable Not Detected (Not Detect); Influenza B ***DETECTED*** (Not Detect)
[2017-10-21 22:38] LABS: Bordetella Pertussis Not Detected (Not Detect); Chlamydophila pneumoniae Not Detected (Not Detect); Mycoplasma pneumoniae Not Detected (Not Detect); Parainfluenza Virus 1 Not Detected (Not Detect); Parainfluenza Virus 2 Not Detected (Not Detect); Parainfluenza Virus 3 Not Detected (Not Detect); Parainfluenza Virus 4 Not Detected (Not Detect); Respiratory Syncytial Virus Not Detected (Not Detect)
[2017-10-22 05:48] LABS: Hematocrit 35.5 % (35.3-44.9); Hemoglobin 11.4 g/dL (11.5-15.4); Mean Corpuscular HGB Conc 32.1 g/dL (31.6-35.5); Mean Corpuscular Volume 90.3 fL (83.0-100.0); Mean Platelet Volume 10.5 fL (9.4-12.4); Platelet Count 243 K/mcL (140-400); Red Blood Count 3.93 M/mcL (3.82-4.97); Red Cell Distribution Width 14.3 % (11.5-14.5)
[2017-10-22] MEDS: Azithromycin 500 MG in D5% in Water 250 ML IVPB SCH (05:56)
[2017-10-22 06:10] LABS: BUN/Creatinine Ratio 28 (6-26); Blood Urea Nitrogen 29 mg/dL (8-23); Calcium 8.5 mg/dL (8.6-10.3); Carbon Dioxide 24 mEq/L (23-29); Chloride 99 mEq/L (98-107); Glucose 282 mg/dL (70-105); Osmolality,Calculated 286 (280-300); Potassium 4.2 mEq/L (3.5-5.1); Sodium 130 mEq/L (136-145); eGFR For African Americans > 60 (> 60); eGFR For Non-African Americans 54 (> 60)
--- NOTE | 2017-10-22 07:19 | Electrocardiograph Report ---
[facility] Test Date: 2017-10-20 Pat Name: Oxana Trimble Department: 102 Room: 3B47 Gender: F Pastry Artist: Reese : 1950 Requested By: Sai Lewis Order Number: [id number] Reading MD: Bree De La Rosa Measurements Intervals [place] Rate: 115 P: MT: 0 QRS: 14 QRSD: 89 T: 58 QT: 311 QTc: 379 Interpretive Statements ATRIAL FIBRILLATION WITH RAPID VENTRICULAR RESPONSE MODERATE ST DEPRESSION [0.05+ mV ST DEPRESSION] Electronically Signed On 10-22-2017 7:17:56 EDT by Bree De La Rosa
[2017-10-22] MEDS: cefTRIAXone 1,000 MG in Water for inj. (sterile) 20 ML 10 ML IVP SCH (08:27)
[2017-10-22] MEDS: Insulin LISPRO 300 UNITS/3 ML VIAL SQ SCH ×4 (08:29→20:27)
[2017-10-22] MEDS: *HR* Insulin Regular U-500 500 UNIT/ML SQ SCH ×3 (08:29→16:11)
[2017-10-22] MEDS: Gabapentin 400 MG CAPSULE PO SCH ×3 (08:33→20:26)
[2017-10-22] MEDS: Furosemide 20 MG TABLET PO SCH (08:33)
[2017-10-22] MEDS: *HR* HYDROcodone/Acet 7.5/325 mg TABLET PO PRN (08:33)
[2017-10-22 08:36] LABS: Estimated Average Glucose 249 mg/dl; Hemoglobin A1C 10.3 %
[2017-10-22] MEDS: *HR* Rivaroxaban 10 MG TABLET PO SCH (16:12)
[2017-10-22] MEDS: *HR* Dextrose 50 % in Water (Syg) 50 ML SYRINGE IVP PRN ×2 (16:13→18:21)
[2017-10-22] MEDS ORDERED: *HR* Rivaroxaban 15 MG TABLET PO SCH (17:00)
--- NOTE | 2017-10-22 17:13 | Internal Med Progress Note ---
Date of Encounter: 10/22/17 Time of Encounter: 11:20 - Assessment and plan (1) Chest pain Current Visit: Yes Status: Acute Assessment and plan: Patient reports chest pain on both left and right upper chest. Onset 2-3 days ago. The pain was constant, increased which caused her to present to the emergency department. She had associated shortness of breath, no nausea or vomiting, no radiation. Patient has nuclear stress test was negative for ischemia or infarct, gaited EF of 73%. Echocardiogram showed LVEF of 60-65% with moderate LV DD, mild MR, mild TR. Patient has been normal sinus on the monitor. Chest CTA showed no PE , left lower lobe bronchial wall thickening with small amount of airspace obesity, early bronchopneumonia could not be excluded. Chest pain is reproducible with palpation. Patient is influenza B positive with URI symptoms, pneumonia. Suspect chest pain related to acute respiratory. Continue Xarelto, beta robin, statin Continue telemetry O2 as needed to maintain sats greater than 92%. Qualifiers: Chest pain type: precordial pain Qualified Code(s): R07.2 - Precordial pain (2) Atrial fibrillation with rapid ventricular response Current Visit: Yes Status: Acute Assessment and plan: Rate controlled at this time. Continue telemetry. Continue Xarelto, sotalol. (3) COPD (chronic obstructive pulmonary disease) Current Visit: Yes Status: Acute Assessment and plan: Mild acute exacerbation worsened by pneumonia, influenza B. Continue albuterol inhaler, duo nebs, guaifenesin Continue telemetry O2 as needed to maintain sats greater than 92% Qualifiers: COPD type: emphysema Emphysema type: unspecified Qualified Code(s): J43.9 - Emphysema, unspecified (4) Pneumonia Current Visit: Yes Status: Acute Assessment and plan: Patient reports both left and right chest pain, shortness of breath. She denies fever, chills, rigors. Patient without signs of sirs or sepsis Community-acquired pneumonia, patient has not been hospitalized. Chest x-ray shows questionable patchy airspace disease at left lung base, chest CTA showed left lower lobe bronchial wall thickening, early bronchopneumonia could not be excluded. Continue telemetry Continue pulse ox and O2, titrate as needed Continue Zithromax IV daily and Rocephin 1 g IV daily Continue duo nebs, albuterol inhaler, guaifenesin. Chest X-Ray 10/20/17 03:29 IMPRESSION: Diffuse airway inflammation may be seen with asthma, bronchitis, smoking and aspiration. Questionable patchy airspace disease at the left lung base, although this may reflect although bronchovascular confluence accentuated by patient rotation. CT could clarify. D/ / Jerel Corado / Jerel Corado Interpreting Provider: Jerel Corado Chest CTA 10/20/17 04:47 IMPRESSION: No pulmonary emboli. Left lower lobe bronchial wall thickening with small amount of peribronchiolar airspace opacity, early bronchopneumonia not excluded. D/ / Emory Pelletier MD / Emory Pelletier MD Interpreting Provider: Emory Pelletier MD Qualifiers: Pneumonia type: due to Pneumococcus Laterality: left Lung location: lower lobe of lung Qualified Code(s): J13 - Pneumonia due to Streptococcus pneumoniae (5) Elevated d-dimer Current Visit: Yes Status: Acute Assessment and plan: Elevated d-dimer. Chest CTA negative for PE. Bilateral lower extremity Dopplers negative for DVT. (6) Diabetes mellitus Current Visit: Yes Status: Chronic Assessment and plan: Patient with hyperglycemia, A1c 10.3. Diabetes is poorly controlled. Continue sliding scale insulin, Accu-Cheks before meals and at bedtime, diabetic diet. Patient could benefit from diabetes education discharge. Qualifiers: Diabetes mellitus type: type 2 Diabetes mellitus jail insulin use: with foreign legal consultant use Diabetes mellitus complication status: without complication Qualified Code(s): E11.9 - Type 2 diabetes mellitus without complications; Z79.4 - longterm (current) use of insulin; Z79.4 - buttermilk drier operator ( current) use of insulin; Z79.4 - longterm (current) use of insulin; Z79.4 - longterm (current) use of insulin (7) Hypertension Current Visit: Yes Status: Chronic Assessment and plan: Chronic. Continue home medications. Qualifiers: Hypertension type: essential hypertension Qualified Code(s): I10 - Essential (primary) hypertension (8) DVT prophylaxis Current Visit: Yes Status: Acute Assessment and plan: Continue Xarelto. (9) Abdominal pain Current Visit: Yes Status: Acute Assessment and plan: Resolved. Qualifiers: Abdominal location: right upper quadrant Qualified Code(s): R10.11 - Right upper quadrant pain (10) MAN (acute kidney injury) Current Visit: Yes Status: Acute Assessment and plan: Serum creatinine 1.02 GFR 54. Renal function has improved. Acute kidney injury likely secondary to resumption of medications including Lipitor diuretic, Aldactone, ARB. Aldactone has been held, Lasix been decreased, ARB decreased by 50%. IV fluid has been discontinued. Patient received 2 L on 10/21/17. Continue to monitor vital signs, labs. Continue to try to avoid nephrotoxins. - Time Spent With Patient Total time spent is greater than 50% in coordination of care (as documented) at patient's floor/unit and/or counseling patient: less than 15 minutes - Subjective Interval history: Patient was seen and assessed at bedside at 11:20 AM. Should multiple family members in the room. She reports chest pain that radiates from left chest to right chest onset 2-3 days ago. She reports this is constant, it increased. She reports associated shortness of breath, no nausea or vomiting, no radiation of pain. She also reports diarrhea for the last 2 weeks without abdominal pain or cramping. Patient is Influenza B positive. - Constitutional Vitals: Temp Pulse Resp BP Pulse Ox 98.0 F 78 14 104/70 98 10/22/17 15:29 10/22/17 15:29 10/22/17 15:29 10/22/17 15:29 10/22/17 15:29 General appearance: Present: cooperative, A&O X 3, morbidly obese, pleasant, no acute distress, answers questions appropriately - Head Head exam: Present: atraumatic, normal inspection, normocephalic - Eye Eye exam: Present: normal appearance, conjuntiva pink, sclera anicteric - Neck Neck exam general surgery: Present: normal inspection, supple, trachea midline. Absent: lymphadenopathy, tenderness - Respiratory Respiratory exam: Present: decreased breath sounds, CTAB. Absent: accessory muscle use, rales, respiratory distress, rhonchi, wheezes - Cardiovascular Cardiovascular exam: Present: RRR, +S1, +S2. Absent: diastolic murmur, gallop, rubs, systolic murmur - GI/Abdominal GI/Abdominal exam: Present: normal bowel sounds, soft. Absent: distended, hepatomegaly, tenderness - Extremities Exam Extremities exam: Present: normal capillary refill, normal inspection, warm, radial pulses palpable and symmetrical. Absent: calf tenderness, cyanotic, pedal edema, tenderness - Neurological Exam Neurological exam: Present: alert, oriented X3, no focal deficits. Absent: facial droop, speech deficit - Skin Skin exam: Present: dry, intact, normal color, warm. Absent: rash Internal Medicine: Result - Labs CBC & Chem 7: 10/22/17 05:01 10/22/17 05:01 Labs: Short CBC 10/22/17 Range/Units 05:01 WBC 4.3 (4.3-11.1) K/mcL Hgb 11.4 L (11.5-15.4) g/dL Hct 35.5 (35.3-44.9) % Plt Count 243 (140-400) K/mcL BMP 10/22/17 05:01 Sodium 130 L Potassium 4.2 Chloride 99 Carbon Dioxide 24 BUN 29 H Creatinine 1.02 Glucose 282 H Calcium 8.5 L - ABG Interpretation ABG results: PT/INR, D-dimer PT 11.8 Seconds (9.4-12.1) 10/20/17 03:29 D-Dimer 1132 ng/mLFEU (0-500) H 10/20/17 03:29 Consult Discharge Plan - Plan Referrals: Elissa Bray CNP [Primary Care Provider] - 10/26/17 11:15 am
[2017-10-22] MEDS ORDERED: *HR* Promethazine 25 MG/ML VIAL IVP ONE (18:21)
[2017-10-22] MEDS: rOPINIRole 1 MG TABLET PO SCH (20:26)
[2017-10-23] MEDS: *HR* HYDROcodone/Acet 7.5/325 mg TABLET PO PRN (03:37)
[2017-10-23 06:00] LABS: Hematocrit 35.8 % (35.3-44.9); Hemoglobin 11.4 g/dL (11.5-15.4); Mean Corpuscular HGB Conc 31.8 g/dL (31.6-35.5); Mean Corpuscular Hemoglobin 29.1 pg (28.0-33.3); Mean Corpuscular Volume 91.3 fL (83.0-100.0); Mean Platelet Volume 10.6 fL (9.4-12.4); Platelet Count 227 K/mcL (140-400); Red Blood Count 3.92 M/mcL (3.82-4.97); Red Cell Distribution Width 14.3 % (11.5-14.5)
[2017-10-23 06:23] LABS: BUN/Creatinine Ratio 27 (6-26); Blood Urea Nitrogen 18 mg/dL (8-23); Carbon Dioxide 26 mEq/L (23-29); Chloride 104 mEq/L (98-107); Glucose 150 mg/dL (70-105); Osmolality,Calculated 287 (280-300); Potassium 4.1 mEq/L (3.5-5.1); Sodium 136 mEq/L (136-145); eGFR For African Americans > 60 (> 60); eGFR For Non-African Americans > 60 (> 60)
[2017-10-23] MEDS: Azithromycin 500 MG in D5% in Water 250 ML IVPB SCH (06:33)
[2017-10-23] MEDS: Furosemide 20 MG TABLET PO SCH (08:14)
[2017-10-23] MEDS: Gabapentin 400 MG CAPSULE PO SCH ×2 (08:15→15:33)
[2017-10-23] MEDS: Insulin LISPRO 300 UNITS/3 ML VIAL SQ SCH ×3 (08:16→15:35)
[2017-10-23] MEDS: cefTRIAXone 1,000 MG in Water for inj. (sterile) 20 ML 10 ML IVP SCH (08:16)
[2017-10-23] MEDS: *HR* Insulin Regular U-500 500 UNIT/ML SQ SCH ×3 (08:17→15:36)
[2017-10-23 14:54] VITALS: BP 116/65
[2017-10-23] MEDS: *HR* Rivaroxaban 10 MG TABLET PO SCH (16:58)
--- NOTE | 2017-10-23 17:48 | Discharge Summary ---
- NOTES TO OUTPATIENT PROVIDER Notes to Outpatient Provider: Patient was treated for community acquired pneumonia, influenza B, COPD exacerbation. She is being sent home with a prescription for guaifenesin, Omnicef, Zithromax. Patient also uncontrolled diabetes with an A1c of 10.3. Recommend diabetes education. Orders not resulted at time of discharge: Pending orders 10/20/17 16:55 NM brent perf SPECT multi [NM] Routine 10/24/17 04:00 BMP [Basic Metabolic Panel] AM 0400 Complete Blood Count w/o Diff [HEME] AM 0400 10/25/17 04:00 BMP [Basic Metabolic Panel] AM 0400 Complete Blood Count w/o Diff [HEME] AM 04010/26/17 04:00 BMP [Basic Metabolic Panel] AM 0400 Complete Blood Count w/o Diff [HEME] AM 0400 Date of Encounter: 10/23/17 Time of Encounter: 12:35 - Discharge Diagnosis (1) Chest pain Priority: Primary Status: Acute Comments: Pt denies chest pain, but it is reproducible with palpation to anterior chest wall. Likely pleuritic chest pain secondary to URI/pneumonia/Flu B. Continue Xarelto, BB, Statin Continue Zithromax and Omnicef at home. Continue inhalers and guaifenesin. Qualifiers: Chest pain type: precordial pain Qualified Code(s): R07.2 - Precordial pain (2) Atrial fibrillation with rapid ventricular response Priority: Secondary Status: Chronic Comments: Rate controlled. Continue to Xarelto and beta robin. (3) COPD (chronic obstructive pulmonary disease) Priority: Secondary Status: Chronic Comments: Mild acute exacerbation worsened by pneumonia, influenza B. Continue albuterol inhaler and guaifenesin, antibiotics, duo nebs. Qualifiers: COPD type: emphysema Emphysema type: unspecified Qualified Code(s): J43.9 - Emphysema, unspecified (4) Pneumonia Priority: Secondary Status: Acute Comments: Plan as above. Qualifiers: Pneumonia type: due to Pneumococcus Laterality: left Lung location: lower lobe of lung Qualified Code(s): J13 - Pneumonia due to Streptococcus pneumoniae (5) Elevated d-dimer Priority: Secondary Status: Acute Comments: Chest CTA negative for PE. Bilateral lower extremity Dopplers negative for DVT. (6) Diabetes mellitus Priority: Secondary Status: Chronic Comments: Patient with hyperglycemia. Diabetes is uncontrolled with an A1c of 10.3. Continue home medications. Be diligent with Accu-Cheks before meals and at bedtime, fasting in the morning. Continue diabetic diet at home. Patient could benefit from diabetes education after discharge. Qualifiers: Diabetes mellitus type: type 2 Diabetes mellitus longterm insulin use: with longterm use Diabetes mellitus complication status: without complication Qualified Code(s): E11.9 - Type 2 diabetes mellitus without complications; Z79.4 - terminal worker (current) use of insulin; Z79.4 - terminal worker ( current) use of insulin; Z79.4 - custodial (current) use of insulin; Z79.4 - terminal worker (current) use of insulin (7) Hypertension Priority: Secondary Status: Chronic Comments: Chronic. Continue home medications. Qualifiers: Hypertension type: essential hypertension Qualified Code(s): I10 - Essential (primary) hypertension (8) DVT prophylaxis Priority: Secondary Status: Acute Comments: Continue Xarelto. (9) Abdominal pain Priority: Secondary Status: Resolved Comments: Resolved. Qualifiers: Abdominal location: right upper quadrant Qualified Code(s): R10.11 - Right upper quadrant pain (10) MAN (acute kidney injury) Priority: Secondary Status: Resolved Comments: Patient has been treated with IV fluid hydration. Renal function is within normal limits. Serum creatinine 0.67 GFR greater than 60. Hospital course: Ms. Trimble is a 67 year old female with PMH of HTN, DM, COPD, A-fib RVR. Pt presents to the ED with c/o chest pain since midnight prior to arrival. Chest pain was located mid chest, described as sharp and heavy, radiated to bilateral shoulders and neck, was constant, worse with deep inspiration. She also presented with shortness of breath. She denies any nausea, no diaphoresis. She reports recent nonproductive cough for 2 weeks prior to arrival, no fever or chills or rigors. He should also presented with right-sided abdominal pain which resolved. Patient presented with elevated d-dimer, CTA negative for PE, bilateral lower extremity Dopplers are negative. EKG showed A. fib, no significant ST changes. Since that time rate is controlled. Troponins are negative, chest CTA showed left lower lobe bronchial wall thickening small amount of. periBronchiolar airspace opacity, early bronchopneumonia could not be excluded. Stress test negative, echocardiogram showed LVEF of 60-65% with moderate LV DD mild MR, moderate TR. Chest pain is reproducible with palpation to left and right anterior chest wall. She was admitted to treated for pneumonia, COPD. Respiratory infectious panel positive for influenza B. Patient declined Tamiflu, symptoms longer than 72 hours. She has improved significantly. She is being sent home with a prescription for Omnicef and Zithromax, will complete course at home. She was treated here with ceftriaxone 1 g daily and Zithromax 500 mg IV daily. She will also be sent home with guaifenesin. Patient admitted with mild acute kidney injury, has resolved. Also concerning is patient's A1c of 10.3. Patient reports that she is noncompliant with medications and diet. Patient could benefit from repeat diabetes education. Labs and vitals are stable and within normal limits. Patient is stable and appropriate for discharge. Discharge discussed with: patient, nurse - Time Spent with Patient Total time spent providing and/or coordinating discharge services: Less than 30 minutes - Discharge Medications Prescriptions: Azithromycin [Zithromax] 250 mg PO DAILY #4 tablet Cefdinir [Omnicef] 300 mg PO BID #10 capsule GuaiFENesin ER [Mucinex] 600 mg PO BID PRN #30 tbbp.12hr PRN Reason: Cough Home Medications: Albuterol Sulfate [Proair Hfa] 2 puff IH Q4H PRN 10/20/17 [History] Atorvastatin Calcium [Lipitor] 20 mg PO DAILY 10/20/17 [History] DULoxetine [Cymbalta] 30 mg PO DAILY 10/20/17 [History] Furosemide [Lasix] 40 mg PO DAILY 10/20/17 [History] Gabapentin [Neurontin] 800 mg PO TID 10/20/17 [History] HYDROcodone/Acet 7.5/325 mg [Lares 7.5-325 mg] 1 tab PO QID 10/20/17 [History] Insulin Regular U-500 [HumuLIN R U-500] 80 unit SQ TID 10/20/17 [History] Ipratropium/Albuterol Neb [Duoneb] 3 ml IH Q4HR PRN 10/20/17 [History] Losartan/HCTZ [Hyzaar 50-12.5 Tablet] 1 tab PO DAILY 10/20/17 [History] Nortriptyline HCl 50 mg PO HS 10/20/17 [History] Renal Vitamin [Renal Caps Softgel] 1 mg PO DAILY 10/20/17 [History] Rivaroxaban [Xarelto] 20 mg PO DAILY 10/20/17 [History] Ropinirole HCl [Requip] 2 mg PO HS 10/20/17 [History] Sotalol HCl [Betapace] 120 mg PO QPM 10/20/17 [History] Sotalol HCl [Betapace] 160 mg PO QAM 10/20/17 [History] Spironolactone [Aldactone] 50 mg PO DAILY 10/20/17 [History] Azithromycin [Zithromax] 250 mg PO DAILY #4 tablet 10/23/17 [Rx] Cefdinir [Omnicef] 300 mg PO BID #10 capsule 10/23/17 [Rx] GuaiFENesin ER [Mucinex] 600 mg PO BID PRN #30 tbbp.12hr 10/23/17 [Rx] Allergies/Adverse Reactions: 3 Allergy/AdvReac Type Severity Reaction Status Date / Time Diclofenac Allergy See Verified 10/20/17 09:41 Comments morphine Allergy Palpitation Verified 10/20/17 09:41 s diltiazem [From Diltzac ER] AdvReac Gastrointestinal Verified 10/20/17 09:41 Upset linagliptin [From Tradjenta] AdvReac Gastrointestinal Verified 10/20/17 09:41 Upset macitentan [From Opsumit] AdvReac Confusion Verified 10/20/17 09:41 metformin AdvReac Gastrointestinal Verified 10/20/17 09:41 Upset NSAIDS (Non-Steroidal AdvReac Gastrointestinal Verified 10/20/17 09:41 Anti-Inflamma Upset pioglitazone [From Actos] AdvReac Gastrointestinal Verified 10/20/17 09:41 Upset pregabalin [From Lyrica] AdvReac Confusion Verified 10/20/17 09:41 Date of admission: 10/20/17 06:43 Primary care physician: Elissa Bray CNP Discharging clinician: Elissa Ball Anticipated date of discharge: 10/23/17 - Constitutional Vitals: Temp Pulse Resp BP Pulse Ox 98.5 F 56 16 116/65 96 10/23/17 14:53 10/23/17 14:53 10/23/17 14:53 10/23/17 14:53 10/23/17 14:53 General appearance: Present: cooperative, A&O X 3, morbidly obese, pleasant, no acute distress, answers questions appropriately - Head Head exam: Present: atraumatic, normal inspection, normocephalic - Eye Eye exam: Present: normal appearance, conjuntiva pink, sclera anicteric - Neck Neck exam general surgery: Present: supple, trachea midline. Absent: lymphadenopathy - Respiratory Respiratory exam: Present: decreased breath sounds, CTAB, wheezes. Absent: accessory muscle use, rales, respiratory distress, rhonchi - Cardiovascular Cardiovascular exam: Present: RRR, +S1, +S2. Absent: diastolic murmur, gallop, rubs, systolic murmur - GI/Abdominal GI/Abdominal exam: Present: normal bowel sounds, soft. Absent: distended, hepatomegaly, tenderness - Extremities Exam Extremities exam: Present: normal capillary refill, normal inspection, warm, radial pulses palpable and symmetrical. Absent: calf tenderness, cyanotic, pedal edema, tenderness - Neurological Exam Neurological exam: Present: alert, oriented X3, no focal deficits. Absent: facial droop, speech deficit - Skin Skin exam: Present: dry, intact, normal color, warm. Absent: rash - Patient Status Disposition: Home, Self-Care Condition: Good Functional capacity at discharge: independent ambulation Overall status at discharge: patient is progressing back to baseline - Discharge Instructions Follow Up With: Elissa Bray CNP [Primary Care Provider] - 10/26/17 11:15 am Additional Instructions: Take your antibiotics as directed and take all of them until they are gone. Take your other medications REturn to the ER as needed for any other problems or concerns, of if your symptoms return or worsen. Return to your normal activities and diet as tolerated. Try to stay inside until you are better. If you must go out, or have visitor at home, wear a mask. Treat your symptoms such as fever or cough with OTC medications. Drink plenty of fluids Follow up with your PCP in the next 7-10 days for a recheck. Make sure that you are checking your blood sugars regularly, take your diabetic medications as directed and stick to a diabetic diet. Your A1c is > 10. I feel that you could benefit from diabetes education and speak with your PCP about a referral to them. - Diet and Activity Activity: increase activity as tolerated Diet: diabetic diet
== END 2017-10-23 18:30 | disposition home or self-care (01) ==
LOC: 3BNU 03:16 → EMEROO 03:16 → 3BNU 06:40
PROVIDERS: ADMIT Internal Medicine; ATTEND Registered Nurse